=== PATIENT | male | born 1985 | race Caucasian/White ===

== ENCOUNTER 2020-05-21 13:23 | Emergency (ER) | payer MEDICAID ==
[~2020-05-21] VITALS: Ht 185.4 cm; Wt 84.1 kg
--- NOTE | 2020-05-21 14:28 | NUR ---
Discussed pt's VS and hx of ETOH w/ Dr Seymour;new orders received.
[2020-05-21] MEDS ORDERED: phenobarbital inj 260 MG in normal saline 100ml IV soln 100 ML IV ONE (14:30)
[2020-05-21] MEDS ORDERED: normal saline 1000ML IV soln IVB ONE ×2 (14:30→17:00)
[2020-05-21] MEDS ORDERED: thiamine 100mg tablet PO ONE (14:30)
[2020-05-21] MEDS ORDERED: magnesium oxide 400mg tablet PO ONE (14:30)
[2020-05-21] MEDS ORDERED: phenobarbital inj 260 MG in normal saline 100ml IV soln 98 ML IV ONE (14:40)
[2020-05-21 14:54] LABS: BASOPHILS % (AUTO) 0.2 % (0-1); EOSINOPHILS % (AUTO) 0.2 % (0-6); HEMATOCRIT 53.2 % (42.0-52.0); LYMPHOCYTES # (AUTO) 0.4 X10'3 (1.1-4.8); LYMPHOCYTES % (AUTO) 2.7 % (21-51); MEAN CORPUSCULAR HEMOGLOBIN 34.9 PG (27.0-31.0); MEAN CORPUSCULAR HGB CONC 33.9 g/dL (33.0-36.5); MEAN CORPUSCULAR VOLUME 102.8 FL (78-98); MEAN PLATELET VOLUME 9.6 FL (7.4-10.4); MONOCYTES # (AUTO) 0.3 X10'3 (0-0.9); MONOCYTES % (AUTO) 1.9 % (2-12); NEUTROPHILS # (AUTO) 15.1 X10'3 (1.8-7.7); PLATELET COUNT 221 X10'3 (140-440); RED BLOOD COUNT 5.18 X10'6 (4.70-6.10); RED CELL DISTRIBUTION WIDTH 14.8 % (11.5-14.5); WHITE BLOOD COUNT 15.9 X10'3 (4.5-11.0)
--- NOTE | 2020-05-21 14:54 | NUR ---
PT REPORTS DRINKING HALF OF 1/5 OF VODKA PER DAY. LAST DRINK WAS 2 DAYS AGO.
[2020-05-21 14:59] LABS: HEMOGLOBIN 18.1 g/dl (14.0-17.9)
[2020-05-21 15:10] LABS: ALANINE AMINOTRANSFERASE 56 U/L (12-78); ALBUMIN 4.1 G/DL (3.4-5.0); ALBUMIN/GLOBULIN RATIO 0.9 (1.1-1.5); ALKALINE PHOSPHATASE 58 IU/L (46-116); ANION GAP 18 (8-16); ASPARTATE AMINO TRANSFERASE 58 U/L (10-37); BILIRUBIN,TOTAL 1.2 MG/DL (0.1-1.0); BLOOD UREA NITROGEN 11 MG/DL (7-18); BUN/CREATININE RATIO 7.8 (5.4-32.0); CHLORIDE 94 MMOL/L (99-107); CREATININE 1.41 MG/DL (0.60-1.10); ETHANOL < 0.010 GM/DL (0.0-0.010); GLUCOSE 173 MG/DL (70-104); SODIUM 136 MMOL/L (135-145); TOTAL CARBON DIOXIDE 24.3 MMOL/L (24-32); TOTAL PROTEIN 8.5 G/DL (6.4-8.2); eGFR 58 ML/MIN
[2020-05-21] MEDS ORDERED: ondansetron/PF 4mg/2ml inj IV ONE (15:10)
[2020-05-21 15:11] LABS: POTASSIUM 3.9 MMOL/L (3.5-5.1)
[2020-05-21 15:12] LABS: MAGNESIUM 0.9 MG/DL (1.5-2.4)
[2020-05-21] MEDS ORDERED: thiamine inj. 100 MG in normal saline 100ml IV soln 99 ML IV ONE (15:15)
[2020-05-21] MEDS ORDERED: magnesium 2GM in 50ml NS 50 ML IV ONE (15:15)
[2020-05-21] MEDS ORDERED: phenobarbital inj 130 MG in normal saline 100ml IV soln 100 ML IV ONE (15:15)
[2020-05-21] MEDS ORDERED: phenobarbital inj 130 MG in normal saline 100ml IV soln 99 ML IV ONE ×2 (15:20→17:00)
[2020-05-21] MEDS ORDERED: thiamine inj. 100 MG in normal saline 100ml IV soln 100 ML IV ONE (15:20)
[2020-05-21] MEDS ORDERED: ONDA4TAB6 PO (16:05)
--- NOTE | 2020-05-21 16:20 | NUR ---
MOTHER CALLED PHONE NUMBER [phone] FOR TRANSPORT HOME.
[2020-05-21 19:34] LABS: CLARITY,URINE CLEAR (Clear); COLOR,URINE YELLOW (Yellow); GLUCOSE, URINE NEGATIVE (Neg); KETONES,URINE TRACE mg/dl (Neg); LEUKOCYTE ESTERASE ,URINE NEGATIVE (Neg); NITRITES, URINE NEGATIVE (Neg); OCCULT BLOOD,URINE MODERATE (Neg); PROTEIN,URINE >=300 mg/dl (Neg)
[2020-05-21 19:45] LABS: UA COLLECTION TYPE NON-SPECIFIED
[2020-05-21 19:46] LABS: URINE AMPHETAMINE SCREEN NEGATIVE (Neg); URINE BARBITUATE SCREEN POSITIVE (Neg); URINE BENZODIAZEPINES SCREEN NEGATIVE (Neg); URINE CANNABINOID SCREEN POSITIVE (Neg); URINE COCAINE SCREEN NEGATIVE (Neg); URINE METHADONE SCREEN NEGATIVE (Neg); URINE OPIATE SCREEN NEGATIVE (Neg); URINE PHENCYCLIDINE SCREEN NEGATIVE (Neg)
[2020-05-21 20:08] LABS: BACTERIA,URINE 2+ /HPF (Neg)
[2020-05-21 20:09] LABS: FINE GRANULAR CAST 0-3 /LPF (NEGATIVE); SQUAMOUS EPITHELIAL CELL,UR FEW /LPF (FEW)
[2020-05-21 20:22] LABS: CREATINE KINASE 75 U/L (39-308)
[2020-05-21 21:02] VITALS: BP 121/97
== END 2020-05-21 21:06 | disposition home or self-care (01) ==
LOC: ER 13:23
DX: K29.20 Alcoholic gastritis without bleeding (principal); R10.13 Epigastric pain; E83.42 Hypomagnesemia; F10.239 Alcohol dependence with withdrawal, unspecified; E86.0 Dehydration; N28.9 Disorder of kidney and ureter, unspecified; F12.90 Cannabis use, unspecified, uncomplicated; Z72.89 Other problems related to lifestyle; Z79.899 Other long term (current) drug therapy; Y90.0 Blood alcohol level of less than 20 mg/100 ml
CPT/HCPCS: 36415; 80053; 80305; 80320; 81001; 82550; 82553; 83735; 85025; 93005; 96365; 96366; 96367; 96368; 96375; 99285; J2405; J2560; J3411; J3475; J7030